=== PATIENT | male | born 1950 ===

== ENCOUNTER 2022-08-27 02:39 | Inpatient (IN) ==
[2022-08-27] MEDS ORDERED: 0.9 % SODIUM CHLORIDE 1,000 ML IV ONE (02:56)
[2022-08-27] MEDS ORDERED: ACETAMINOPHEN 325 MG TABLET PO ONE (02:56)
--- NOTE | 2022-08-27 02:57 | Emergency Department Note ---
Fever HPI General Chief Complaint: Fever Stated Complaint: fever, weakness Time Seen by Provider: 08/27/22 02:56 Source: patient, family (Daughter primarily and .) and EMS Mode of arrival: EMS Limitations: no limitations History of Present Illness HPI Narrative: Narrative: 71-year-old male presents emerged department brought in by ambulance because of fever and generalized body ache. Daughter reports that on Saturday he had muscle pains in his arms shoulders and chest. She thought it was due to him using the weed Dwayne so much. Saturday morning he did not feel well and actually felt worse. He sat in the chair all day and had no appetite which was very much unlike him. His mouth seemed droopy his eyes seemed droopy and his speech seems slurred. He lost bladder control. He was unable to sit up on his own. He shuffles when he walks. He has lost about 25 pounds recently on a weight loss diet. His present weight is 285 pounds. His left lower extremity has been secreting fluids. It is quite red and has been that way for some time. He recently had multiple biopsies performed by his systems security analyst. There was concern about the biopsy site on his back and question whether it could be infected. He was started on antibiotic for 1 week which she finished 3 days ago. Medications: His medicine list includes the blood thinner Pradaxa, amantadine, metformin 500 mg twice daily, bumetanide, atorvastatin, tamsulosin, hydrocodone, potassium chloride, other. Past medical history includes morbid obesity, a TIA 5 years ago, surgery to close a hole in his heart in 2009. Social history: , systems architecture analyst. Related Data Home Medications Medication Instructions Recorded Confirmed amantadine HCl 100 mg tablet 100 mg PO BID 08/27/22 08/27/22 atorvastatin 10 mg tablet 10 mg PO QDAY 08/27/22 08/27/22 bumetanide 1 mg tablet 1 mg PO BID 08/27/22 08/27/22 dabigatran etexilate 150 mg capsule 150 mg PO QDAY 08/27/22 08/27/22 hydrocodone 10 mg-acetaminophen 1 tab PO Q6H PRN Pain 08/27/22 08/27/22 325 mg tablet metformin 500 mg tablet,extended 500 mg PO BID 08/27/22 08/27/22 release 24 hr potassium chloride 10 mEq 10 meq PO QDAY 08/27/22 08/27/22 capsule,extended release tamsulosin 0.4 mg capsule 0.4 mg PO QDAY 08/27/22 08/27/22 Allergies Allergy/AdvReac Type Severity Reaction Status Date / Time No Known Drug Allergies Allergy Unverified 08/27/22 02:48 Review of Systems ROS ROS Narrative: Narrative: Constitutional: Reports fever and weakness Eyes: Denies eye discharge ENT ED: Denies ear pain or congestion Cardiovascular: Denies chest pain Respiratory: Reports shortness of breath; Denies cough Gastrointestinal: Denies abdominal pain, nausea, vomiting or diarrhea Genitourinary: Denies dysuria Musculoskeletal: Denies back pain Neurological: Denies headache PFSH Narrative Patient History Narrative: Narrative: Medical/Surgical/Family History All Active Problems (Updated 08/27/22 @ 07:56 by Gurinder Randhawa MD) Sepsis (Acute) Cellulitis of left lower extremity without foot (Acute) Social History Smoking Status: Never smoker Exam Narrative Narrative: Narrative: Morbidly obese elderly male lying in bed with a bright red left leg. Patient cannot answer questions when asked directly. Left lower extremity with significant edema from the ankle to 2 below the knee. Then there is spreading erythema that goes on the medial aspect of the thigh towards his groin. Extremity is edematous. There is also weeping from it. General Limitations: no limitations General appearance: Present alert, in distress and obese Head Head: Present atraumatic Eye Eye: Present PERRL and EOMI; Absent scleral icterus ENT ENT: Present normal exam, normal oropharynx, mucous membranes moist, mucous membranes dry, TM's normal bilaterally and normal external ear exam Neck Neck: Present normal inspection; Absent tenderness or meningismus Chest Chest: Present normal inspection Respiratory Respiratory: Present normal lung sounds bilaterally; Absent wheezes Cardiovascular Cardiovascular: Present normal rhythm and tachycardia Adbominal Abdominal: Present soft; Absent tenderness or guarding Extremities Extremities: Present other (Left lower extremity edematous and erythematous with with redness spreading from the ankle circumferentially to below the knee and then medially up the thigh to the level of the groin.) Back Back: Present other (Small healing wound central back from his biopsy. 2 mm rim of erythema around it but it does not look cellulitic.); Absent tenderness Neurological Neurological: Present alert and oriented X3 Psychiatric Psychiatric: Present normal affect and normal mood Skin Skin: Present warm (WNL) and dry Course Vital Signs Vital signs: Vital Signs Temperature 99.4 F H 08/27/22 02:40 Pulse Rate 130 H 08/27/22 02:40 Respiratory Rate 26 H 08/27/22 02:40 Blood Pressure 152/82 08/27/22 02:40 Pulse Oximetry (%) 93 08/27/22 02:40 Oxygen Delivery Method Room Air 08/27/22 02:40 Temperature 98.8 F 08/27/22 06:05 Pulse Rate 102 H 08/27/22 07:35 Respiratory Rate 26 H 08/27/22 07:40 Blood Pressure 110/71 08/27/22 07:40 Pulse Oximetry (%) 96 08/27/22 07:40 Oxygen Delivery Method Room Air 08/27/22 07:35 MDM MDM Narrative Medical decision making narrative: Narrative: Elderly male with fever and rapid heart rate along with an infected left leg. Differential diagnosis includes sepsis, atrial fibrillation, dehydration, infected left leg, other. Emergency room course. Patient was started on IV fluids and bolused 1 L of normal saline. He was not hypotensive and his lactic acid was normal so he did not require 30 mL/kg. Patient was given 975 mg of acetaminophen to bring down his fever. Patient was started on antibiotics for sepsis. 0320: Patient meets sepsis criteria with his leg is infection source and SIRS criteria of heart rate at 130 and respiratory rate of 36. Blood culture has been obtained and IV antibiotics (Zosyn and Vanco) have been ordered. Lactic acid level is normal at 1.6. Patient does not meet criteria of severe sepsis at this time. Hematocrit is 53. Electrolytes are normal. Sodium is 134. Potassium is 4.1. Chloride is 97. Bicarb is 29. BUN is normal at 13 with a normal creatinine of 0.8. Glucose is elevated at 179 and this type II diabetic. Lactic acid level is normal at 1.6. Troponin was negative at 0.02. Dip urine showed no nitrites no leukocytes trace blood. 0405: Patient has a temperature of 102.1. This is a third SIRS criteria. 0600 temperature has come down after the 975 mg of acetaminophen. Heart rate has come down as the temperature has come down. Patient has no localizing findings on physical exam. Scripts are equal upper and lower and there was no facial asymmetry. Nevertheless he does have a delay when speaking. He also struggled with the date and needed the presence first name before he gets to the presence last name. I have gone ahead and obtained a CT scan of the head because of this and because his NIH stroke scale was 5 although this seem to be related to general muscle weakness. Examination of his neck revealed that he could flex his neck putting his chin on his chest as well as put his head back making me less suspicious of meningitis. CT scan of the head was unremarkable. At 0700 the patient was able to sit up on his own without assistance. He spoke clearly without any difficulties. He was able to identify the date and location and was oriented. acknowledged that this was an improvement from earlier. Patient stated that he himself felt like he was feeling better and commented that he was unable to sit up on his own before and he felt like he had a bit more strength back. Patient requires hospitalization for his sepsis secondary to his left lower extremity. Case was discussed with our hospitalist Dr. Carrasco. Patient will be admitted for IV therapy. I will order a Doppler ultrasound left lower extremity to evaluate for possible DVT. Sepsis Sepsis Identified: Yes Time Zero: 0320: SIRS= tachy at 130, Tachypnic at 36, Left leg = source of infect Lab Data 08/27/22 03:28 Labs: Lab Results 08/27/22 08/27/22 08/27/22 Range/Units 02:57 02:58 02:59 WBC (4.5-11.0) K/mcL RBC (4.63-6.08) M/mcL Hgb (13.7-17.5) g/dL Hct (40.1-51.0) % POC Hct 53.0 (41-55) MCV (80.0-100.0) fL MCH (26.0-34.0) pg MCHC (31.0-36.0) g/dL RDW (11.5-14.5) % Plt Count (140-440) K/mcL MPV (8.8-12.5) fL Immature Gran % (Auto) (0.0-0.5) % Neut % (Auto) (38.0-78.0) % Lymph % (Auto) (15.5-49.0) % [place] % (Auto) (1.0-12.0) % Eos % (Auto) (0.0-7.0) % Baso % (Auto) (0.0-2.0) % Lymph # (Auto) (1.50-4.80) K/mcL [place] # (Auto) (0.10-0.90) K/mcL Eos # (Auto) (0.00-0.70) K/mcL Baso # (Auto) (0.00-0.30) K/mcL Immature Gran # (0.00-0.05) K/mcl Absolute Neutrophils (1.80-8.00) K/mcL POC VBG pH 7.50 H (7.32-7.42) POC VBG pCO2 at Temp 37.7 L (41-51) POC VBG pO2 43 H (25-40) POC VBG HCO3 29.2 H (24-28) POC VBG Total CO2 30.0 H (25-29) POC Venous O2 Sat 83.0 H (40-70) POC VBG Base Excess 6.0 H* (-2-2) VBG Lactic Acid 1.6 (0.5-2) POC Sodium 134 (133-145) POC Potassium 4.1 (3.3-5.1) POC Chloride 97 (96-108) POC Total CO2 29.0 (22-30) POC BUN 13 (6-20) POC Creatinine 0.8 (0.6-1.2) POC Glucose 179 H (70-105) POC WB Ioniz Calcium 1.05 L (1.16-1.32) Total Bilirubin (0.1-1.0) mg/dL Direct Bilirubin (0-0.3) mg/dL AST (<40) U/L ALT (<40) U/L Alkaline Phosphatase (39-117) U/L Total Protein (5.9-8.4) gm/dL Albumin (3.2-5.2) gm/dL Globulin (2.2-3.7) gm/dL POC Troponin I 0.02 (0.00-0.08) 08/27/22 08/27/22 08/27/22 Range/Units 03:28 03:28 03:32 WBC 17.8 H (4.5-11.0) K/mcL RBC 4.86 (4.63-6.08) M/mcL Hgb 14.9 (13.7-17.5) g/dL Hct 46.4 (40.1-51.0) % POC Hct (41-55) MCV 95.5 (80.0-100.0) fL MCH 30.7 (26.0-34.0) pg MCHC 32.1 (31.0-36.0) g/dL RDW 12.7 (11.5-14.5) % Plt Count 187 (140-440) K/mcL MPV 10.3 (8.8-12.5) fL Immature Gran % (Auto) 1.0 H (0.0-0.5) % Neut % (Auto) 91.8 H (38.0-78.0) % Lymph % (Auto) 2.4 L (15.5-49.0) % [place] % (Auto) 4.5 (1.0-12.0) % Eos % (Auto) 0.1 (0.0-7.0) % Baso % (Auto) 0.2 (0.0-2.0) % Lymph # (Auto) 0.43 L (1.50-4.80) K/mcL [place] # (Auto) 0.81 (0.10-0.90) K/mcL Eos # (Auto) 0.01 (0.00-0.70) K/mcL Baso # (Auto) 0.03 (0.00-0.30) K/mcL Immature Gran # 0.17 H (0.00-0.05) K/mcl Absolute Neutrophils 16.37 H (1.80-8.00) K/mcL POC VBG pH 7.43 H (7.32-7.42) POC VBG pCO2 at Temp 39.8 L (41-51) POC VBG pO2 28 (25-40) POC VBG HCO3 26.6 (24-28) POC VBG Total CO2 28.0 (25-29) POC Venous O2 Sat 55.0 (40-70) POC VBG Base Excess 2.0 (-2-2) VBG Lactic Acid 1.7 (0.5-2) POC Sodium (133-145) POC Potassium (3.3-5.1) POC Chloride (96-108) POC Total CO2 (22-30) POC BUN (6-20) POC Creatinine (0.6-1.2) POC Glucose (70-105) POC WB Ioniz Calcium (1.16-1.32) Total Bilirubin 0.4 (0.1-1.0) mg/dL Direct Bilirubin < 0.2 (0-0.3) mg/dL AST 21 (<40) U/L ALT 15 (<40) U/L Alkaline Phosphatase 68 (39-117) U/L Total Protein 6.6 (5.9-8.4) gm/dL Albumin 3.6 (3.2-5.2) gm/dL Globulin 3.0 (2.2-3.7) gm/dL POC Troponin I (0.00-0.08) EKG Data EKG #1: EKG attestation: Yes I reviewed and interpreted this EKG. Rate: tachycardia Rhythm: NSR [place]/QRS: left axis deviation and RBBB Interpretation: other (Abnormal EKG. Sinus tachycardia with right bundle branch block.) Discharge Plan Patient/Caregiver Discharge Instructions Pt seen by RESIDENT CARE PROVIDER/PA only: No Clinical Impression: Cellulitis of left lower extremity without foot Sepsis Qualifiers: Sepsis type: sepsis due to unspecified organism Sepsis acute organ dysfunction status: without acute organ dysfunction Qualified Code(s): A41.9 - Sepsis, unspecified organism Patient Disposition: Xfer As Inpt ([facility]) Condition: Serious Follow up with: Layla Fierro MD [Primary Care Provider] - Prescriptions: No Action amantadine HCl 100 mg Tablet 100 mg PO BID tamsulosin 0.4 mg capsule 0.4 mg PO QDAY bumetanide 1 mg Tablet 1 mg PO BID dabigatran etexilate 150 mg Capsule 150 mg PO QDAY potassium chloride 10 mEq capsule, extended release 10 meq PO QDAY atorvastatin 10 mg tablet 10 mg PO QDAY hydrocodone-acetaminophen 10-325 mg Tablet 1 tab PO Q6H PRN (Reason: Pain) metformin 500 mg tablet extended release 24 hr 500 mg PO BID
[2022-08-27 03:12] LABS: POC Calcium, Ionized 1.05 (1.16-1.32); POC Creatinine 0.8 (0.6-1.2); POC Potassium 4.1 (3.3-5.1)
[2022-08-27] MEDS ORDERED: PIPERACILLIN SODIUM/TAZOBACTAM 3.375 GM in DEXTROSE 5% IN WATER 50 ML IV ONE (03:21)
[2022-08-27] MEDS ORDERED: 0.9 % SODIUM CHLORIDE 500 ML ONE (03:27)
[2022-08-27] MEDS ORDERED: VANCOMYCIN 1,000 MG in 0.9 % SODIUM CHLORIDE 250 ML IV SCH (03:30)
[2022-08-27 04:12] LABS: Basophils # (Auto) 0.03 K/mcL (0.00-0.30); Basophils % (Auto) 0.2 % (0.0-2.0); Eosinophils # (Auto) 0.01 K/mcL (0.00-0.70); Eosinophils % (Auto) 0.1 % (0.0-7.0); Hematocrit 46.4 % (40.1-51.0); Hemoglobin 14.9 g/dL (13.7-17.5); Lymphocytes # (Auto) 0.43 K/mcL (1.50-4.80); Lymphocytes % (Auto) 2.4 % (15.5-49.0); Mean Cell Volume 95.5 fL (80.0-100.0); Mean Corpuscular HGB Conc 32.1 g/dL (31.0-36.0); Mean Platelet Volume 10.3 fL (8.8-12.5); Monocytes # (Auto) 0.81 K/mcL (0.10-0.90); Monocytes % (Auto) 4.5 % (1.0-12.0); Neutrophils % (Auto) 91.8 % (38.0-78.0); Platelet Count 187 K/mcL (140-440); RBC 4.86 M/mcL (4.63-6.08); Red Cell Distribution Width 12.7 % (11.5-14.5); WBC 17.8 K/mcL (4.5-11.0)
[2022-08-27 04:21] LABS: ALT/SGPT 15 U/L (<40); AST/SGOT 21 U/L (<40); Albumin 3.6 gm/dL (3.2-5.2); Alkaline Phosphatase 68 U/L (39-117); Bilirubin,Direct < 0.2 mg/dL (0-0.3); Bilirubin,Total 0.4 mg/dL (0.1-1.0)
--- NOTE | 2022-08-27 07:14 | EKG ---
[facility] Test Date: 2022-08-27 Pat Name: Foreign Matthew Department: ED Room: Gender: Male Gold Buyer: CW : 1950 Requested By: Gurinder Randhawa Order Number: [id number] Reading MD: Stan Hogan Measurements Intervals [place] Rate: 129 P: 55 MS: 134 QRS: -82 QRSD: 142 T: 1 QT: 312 QTc: 456 Interpretive Statements Sinus tachycardia Right bundle branch block Electronically Signed On 08-27-2022 7:14:29 PDT by Stan Hogan /store/[email or web address]/[id number]
--- NOTE | 2022-08-27 08:53 | XRay Report ---
CLINICAL INFORMATION: Fever COMPARISON: 10/13/2021 TECHNIQUE: Portable FINDINGS: The heart size, mediastinum and pulmonary vessels are unremarkable. Mild bibasilar airspace disease likely represents atelectasis. There are no effusions. The bones and soft tissues are within normal limits. IMPRESSION: Minor bibasilar airspace disease-likely atelectasis. Interpreted and Authenticated by: Mihai Aguilera 08/27/22
--- NOTE | 2022-08-27 08:56 | Ultrasound Report ---
CLINICAL INFORMATION: Left lower extremity pain COMPARISON: None. FINDINGS: The entire deep venous system including the common femoral, superficial femoral, popliteal and paired trifurcation calf veins are easily compressible and show normal venous blood flow on color and spectral Doppler. No evidence of thrombus IMPRESSION: Negative exam - no evidence of deep vein thrombosis. Interpreted and Authenticated by: Mihai Aguilera 08/27/22
--- NOTE | 2022-08-27 09:00 | Cat Scan Report ---
CLINICAL INFORMATION: Dysarthria. Fever and weakness COMPARISON: None. TECHNIQUE: 2.5 mm helical slices were obtained in the skull base to vertex. Following reconstruction, axial reformatted images were reviewed at bone and parenchymal windows. The exam was performed using radiation dose optimization techniques including, but not limited to, automated exposure control, adjustment of the mA and/or kV according to patient size and use of iterative reconstruction technique. FINDINGS: The ventricles, sulci, fissures, and cisterns are symmetrically enlarged compatible with mild age-related atrophy. No extra-axial fluid collections are identified. Mild patchy chronic ischemic changes, in the deep cerebral white matter, are expected for age. A 16 mm remote lacunar infarct in the left cerebellar hemisphere appreciated. Few tiny remote lacunar infarcts present in the basal ganglia with a 6 mm remote lacunar infarct right insular cortex and external capsule. There is no hemorrhage, mass effect, or edema. Bone windows show no osseous abnormality. IMPRESSION: Mild atrophy and chronic ischemic changes in the deep cerebral white matter-expected for age. Remote lacunar infarcts as described. No acute findings Interpreted and Authenticated by: Mihai Aguilera 08/27/22
--- NOTE | 2022-08-27 10:43 | Internal Med History&Physical ---
HPI History of Present Illness Patient information: Note initiated : 08/27/22 at 10:41 am Service Date, if different from initiated Date: [] Patient: Foreign Matthew a 71 y/o M admitted on for fever, weakness. Chief Complaint: [] History of present illness: Mr. Matthew is a 71 year old M Presents to the ED after family called EMS because patient was severely weak confused. Saturday patient spent quite a bit of time doing yard work and that night was little bit sore but otherwise felt well they went to dinner. He went to bed normal no complaints. Saturday morning his daughter found him to be weak and drowsy. Further measure the day just stayed in his chair and seem to get worse becoming more weak and unable to stand. He he was confused per family did not make any sense. He was sitting in his chair with his mouth open. He felt quite chilled and found members that he soaked through his pajamas. He has had a small punctate wound lateral left lower leg for some time which drains and soaks his socks. In the ED is found to have red swollen and tender left lower extremity. He was tachycardic at 110 and tachypneic. He had a leukocytosis of 18,000. Lactate was okay. Patient diagnosed with left lower extremity cellulitis and sepsis and started on IV antibiotics and IV fluids. Review of Systems: Pertinent positives above. Denies headache/fever/nausea/vomiting/chest or abdominal pain/cough/dyspnea/diarrhea. Remaining 10 point review of system reviewed negative PHYSICAL EXAM General: Alert, Awake, No acute Distress, obese Eyes/N/T: EOMI, no scleral icterus, PERRL, dry MM Head/Neck: neck supple, full ROM, normocephalic atraumatic CV: RRR, No murmurs, normal s1/s2 Pulm: Clear b/l, no wheezing/rhonchi/rales, no respiratory distress Abd: soft, nontender, +BS x4 Ext: no clubbing/cyanosis. b/l LE 2+ edema, LLE erythema/edema/tenderness above ankle and below knee circumferential Neuro: Alert, no focal deficits, moves all extremities, CN 2-12 grossly intact, sensations intact b/l upper/lower Psychiatric: Skin: warm/dry, normal color PFSH PFSH All Active Problems (Updated 08/27/22 @ 07:56 by Gurinder Randhawa MD) Sepsis (Acute) Cellulitis of left lower extremity without foot (Acute) Social History smoking status: Never smoker MEDS/ALLERGIES Home Medications and Allergies Home Medications Medication Instructions Recorded Confirmed Type amantadine HCl 100 mg tablet 100 mg PO BID 08/27/22 08/27/22 History atorvastatin 10 mg tablet 10 mg PO QDAY 08/27/22 08/27/22 History bumetanide 1 mg tablet 1 mg PO BID 08/27/22 08/27/22 History dabigatran etexilate 150 mg capsule 150 mg PO QDAY 08/27/22 08/27/22 History hydrocodone 10 mg-acetaminophen 1 tab PO Q6H PRN Pain 08/27/22 08/27/22 History 325 mg tablet metformin 500 mg tablet,extended 500 mg PO BID 08/27/22 08/27/22 History release 24 hr potassium chloride 10 mEq 10 meq PO QDAY 08/27/22 08/27/22 History capsule,extended release tamsulosin 0.4 mg capsule 0.4 mg PO QDAY 08/27/22 08/27/22 History Allergies Allergy/AdvReac Type Severity Reaction Status Date / Time No Known Drug Allergies Allergy Unverified 08/27/22 02:48 EXAM Constitutional Vitals: Temp Pulse Resp BP Pulse Ox O2 Del Method 98.8 F 106 H 17 124/71 96 Room Air 08/27/22 06:05 08/27/22 10:27 08/27/22 09:01 08/27/22 10:01 08/27/22 10:27 08/27/22 07:35 DATA Data Completed and Pending Labs: Labs from last 24 hours 08/27/22 08/27/22 08/27/22 03:32 03:28 03:28 WBC 17.8 H RBC 4.86 Hgb 14.9 Hct 46.4 POC Hct MCV 95.5 MCH 30.7 MCHC 32.1 RDW 12.7 Plt Count 187 MPV 10.3 Immature Gran % (Auto) 1.0 H Neut % (Auto) 91.8 H Lymph % (Auto) 2.4 L [place] % (Auto) 4.5 Eos % (Auto) 0.1 Baso % (Auto) 0.2 Lymph # (Auto) 0.43 L [place] # (Auto) 0.81 Eos # (Auto) 0.01 Baso # (Auto) 0.03 Immature Gran # 0.17 H Absolute Neutrophils 16.37 H POC VBG pH 7.43 H POC VBG pCO2 at Temp 39.8 L POC VBG pO2 28 POC VBG HCO3 26.6 POC VBG Total CO2 28.0 POC Venous O2 Sat 55.0 POC VBG Base Excess 2.0 VBG Lactic Acid 1.7 POC Sodium POC Potassium POC Chloride POC Total CO2 POC BUN POC Creatinine POC Glucose POC WB Ioniz Calcium Total Bilirubin 0.4 Direct Bilirubin < 0.2 AST 21 ALT 15 Alkaline Phosphatase 68 Total Protein 6.6 Albumin 3.6 Globulin 3.0 POC Troponin I 08/27/22 08/27/22 08/27/22 02:59 02:58 02:57 WBC RBC Hgb Hct POC Hct 53.0 MCV MCH MCHC RDW Plt Count MPV Immature Gran % (Auto) Neut % (Auto) Lymph % (Auto) [place] % (Auto) Eos % (Auto) Baso % (Auto) Lymph # (Auto) [place] # (Auto) Eos # (Auto) Baso # (Auto) Immature Gran # Absolute Neutrophils POC VBG pH 7.50 H POC VBG pCO2 at Temp 37.7 L POC VBG pO2 43 H POC VBG HCO3 29.2 H POC VBG Total CO2 30.0 H POC Venous O2 Sat 83.0 H POC VBG Base Excess 6.0 H* VBG Lactic Acid 1.6 POC Sodium 134 POC Potassium 4.1 POC Chloride 97 POC Total CO2 29.0 POC BUN 13 POC Creatinine 0.8 POC Glucose 179 H POC WB Ioniz Calcium 1.05 L Total Bilirubin Direct Bilirubin AST ALT Alkaline Phosphatase Total Protein Albumin Globulin POC Troponin I 0.02 A/P Narrative A/P Narrative: A: *LLE cellulitis: *Sepsis: 2/2 above *Bacteremia (GPC in chains): *Encephalopathy: 2/2 above *DM 2: *h/o TIA: on pradaxa, no history of PE/DVT/Arrhythmia *Obesity: BMI 40, lifestyle modification *BPH: *Peripheral edema: On Bumex *HLD: On statin * P: -Rocephin, clinda x24-48, pending BC, mrsa screen neg -serial BC's -IVF -monitor renal fxn, uop, i/o -outline cellulitis, Elevate - -Continue statin -SSI -PT/OT -ppx: home pradaxa/katarzyna Time Spent With Patient Time: Total time spent is greater than 50% in coordination of care (as documented) at patient's floor/unit and/or counseling patient:
[2022-08-27] MEDS ORDERED: IPRATROPIUM/ALBUTEROL 3 ML AMPUL.NEB NEB PRN (12:10)
[2022-08-27] MEDS ORDERED: POLYETHYLENE GLYCOL 3350 17 GM PACKET PO PRN (12:10)
[2022-08-27] MEDS ORDERED: SENNOSIDES 1 TABLET PO PRN (12:10)
[2022-08-27] MEDS ORDERED: ONDANSETRON 4 MG/2 ML VIAL IV PRN (12:10)
[2022-08-27] MEDS ORDERED: POTASSIUM CHLORIDE 20 MEQ TABLET PO PRN ×2 (12:10)
[2022-08-27] MEDS ORDERED: 0.9 % SODIUM CHLORIDE 1,000 ML IV SCH (12:10)
[2022-08-27] MEDS ORDERED: DEXTROSE 31 GM ORAL.SUSP PO PRN (12:10)
[2022-08-27] MEDS ORDERED: HYDROcodone/APAP 10/325MG TABLET PO PRN (12:10)
[2022-08-27] MEDS ORDERED: DEXTROSE 50% 50 ML VIAL IV PRN (12:10)
[2022-08-27] MEDS ORDERED: POTASSIUM CHLORIDE 40 MEQ in DEXTROSE 5% IN WATER 500 ML IV PRN (12:10)
[2022-08-27] MEDS ORDERED: MAGNESIUM SULFATE 2 GM/50 ML BAG IV PRN (12:10)
[2022-08-27] MEDS: INSULIN LISPRO 1 UNIT/0.01 ML UNIT SQ SCH ×3 (13:17→21:00)
[2022-08-27] MEDS: cefTRIAXone 2 GM in DEXTROSE 5% IN WATER 50 ML IV SCH (13:30)
[2022-08-27] MEDS: CLINDAMYCIN IN 0.9 % SOD CHLOR 600 MG/50 ML BAG IV SCH ×2 (14:15→21:01)
[2022-08-27] MEDS: 0.9 % SODIUM CHLORIDE 10 ML SYRINGE IV SCH ×2 (14:16→21:01)
[2022-08-27] MEDS: ACETAMINOPHEN 325 MG TABLET PO PRN (18:57)
[2022-08-27] MEDS: BUMETANIDE 1 MG TABLET PO SCH (20:56)
[2022-08-27] MEDS: DOCUSATE SODIUM 100 MG CAPSULE PO SCH (20:57)
[2022-08-27] MEDS: AMANTADINE HCL 100 MG CAPSULE PO SCH (20:57)
[2022-08-28] MEDS: ACETAMINOPHEN 325 MG TABLET PO PRN (03:29)
[2022-08-28] MEDS: CLINDAMYCIN IN 0.9 % SOD CHLOR 600 MG/50 ML BAG IV SCH ×3 (05:07→21:32)
[2022-08-28] MEDS: 0.9 % SODIUM CHLORIDE 10 ML SYRINGE IV SCH ×3 (05:08→21:32)
[2022-08-28] MEDS: INSULIN LISPRO 1 UNIT/0.01 ML UNIT SQ SCH ×4 (06:35→20:26)
[2022-08-28 07:15] LABS: Basophils # (Auto) 0.03 K/mcL (0.00-0.30); Basophils % (Auto) 0.3 % (0.0-2.0); Eosinophils # (Auto) 0.08 K/mcL (0.00-0.70); Eosinophils % (Auto) 0.7 % (0.0-7.0); Hematocrit 44.3 % (40.1-51.0); Hemoglobin 14.3 g/dL (13.7-17.5); Lymphocytes % (Auto) 10.1 % (15.5-49.0); Mean Cell Volume 95.1 fL (80.0-100.0); Mean Corpuscular HGB Conc 32.3 g/dL (31.0-36.0); Mean Platelet Volume 10.5 fL (8.8-12.5); Monocytes # (Auto) 1.26 K/mcL (0.10-0.90); Monocytes % (Auto) 10.6 % (1.0-12.0); Neutrophils % (Auto) 77.8 % (38.0-78.0); Platelet Count 188 K/mcL (140-440); RBC 4.66 M/mcL (4.63-6.08); Red Cell Distribution Width 12.7 % (11.5-14.5); WBC 11.9 K/mcL (4.5-11.0)
--- NOTE | 2022-08-28 07:32 | Internal Med Progress Note ---
SUBJECTIVE Subjective Patient information: Note initiated : 08/28/22 at 7:27 am Service Date, if different from initiated Date: [] Patient: Foreign Matthew a 71 y/o M admitted on 08/27/22 for fever, weakness. Chief Complaint: [] Interval history: History of present illness: Mr. Matthew is a 71 year old M Presents to the ED after family called EMS because patient was severely weak confused. Saturday patient spent quite a bit of time doing yard work and that night was little bit sore but otherwise felt well they went to dinner. He went to bed no rmal no complaints. Saturday morning his daughter found him to be weak and drowsy. Further measure the day just stayed in his chair and seem to get worse becoming more weak and unable to stand. He he was confused per family did not make any sense. He was sitting in his chair with his mouth open. He felt quite chilled and found members that he soaked through his pajamas. He has had a small punctate wound lateral left lower leg for some time which drains and soaks his socks. In the ED is found to have red swollen and tender left lower extremity. He was tachycardic at 110 and tachypneic. He had a leukocytosis of 18,000. Lactate was okay. Patient diagnosed with left lower extremity cellulitis and sepsis and started on IV antibiotics and IV fluids. 08/28 Patient feeling much better today. Slept well. Blood cultures growing gram- positive cocci in chains likely strep. Repeat blood cultures pending. Continue antibiotics parental. Leukocytosis present but better. Review of Systems: Pertinent positives above. Denies headache/fever/nausea/vomiting/chest or abdominal pain/cough/dyspnea/diarrhea. PHYSICAL EXAM General: Alert, Awake, No acute Distress, obese Eyes/N/T: EOMI, no scleral icterus, Head/Neck: neck supple, full ROM, CV: RRR, No murmurs, Pulm: Clear b/l, no wheezing/rhonchi/rales, no respiratory distress Abd: soft, nontender, +BS x4 Ext: no clubbing/cyanosis. b/l LE 2+ edema, LLE erythema/edema/tenderness above ankle and below knee circumferential is improving Neuro: Alert, no focal deficits, moves all extremities, sensations intact b/l upper/lower Psychiatric: Skin: warm/dry, normal color Constitutional Vitals: Vital Signs Temp Pulse Resp BP Pulse Ox O2 Del Method 97.5 F 81 18 103/67 97 Room Air 08/28/22 03:55 08/28/22 03:55 08/28/22 03:55 08/28/22 03:55 08/28/22 03:55 08/28/22 06:53 Period Temp Pulse Resp BP Sys/[place] Pulse Ox O2 Del Method O2 Flow Rate Last 24 Hr 97.2 F-101 F 81-109 17- 103-140/67-88 91-99 Room Air-Room Air Intake and Output 08/27/22 08/28/22 08/28/22 19:59 03:59 11:59 Intake Total 580 1750 50 Output Total 300 Balance 280 1750 50 Weight 136.758 kg Intake & Output: Intake & Output 08/27/22 08/28/22 08/28/22 19:59 03:59 11:59 Intake Total 580 1750 50 Output Total 300 Balance 280 1750 50 Weight 136.758 kg Intake: IV 100 1050 50 Sodium Chloride 0.9% 1,000 ml @ 1000 100 mls/hr IV .Q10H [facility] Rx#: [id number] Rocephin 2 gm In Dextrose 5% in 50 Water 50 ml @ 100 mls/hr IV Q24H [facility] Rx#:[id number] Oral 480 700 Output: Void Amount 300 Other: Meal Lunch Percent of Meal Consumed 75% Urine Appearance Clear Urine Color Yellow # Voids 1 4 OBJ DATA Labs 08/28/22 05:54 08/28/22 05:54 Labs: Abnormal Lab Results 08/28/22 08/27/22 08/27/22 05:54 03:32 03:28 WBC 11.9 H 17.8 H Immature Gran % (Auto) 1.0 H Neut % (Auto) 91.8 H Lymph % (Auto) 10.1 L 2.4 L Lymph # (Auto) 1.20 L 0.43 L [place] # (Auto) 1.26 H Immature Gran # 0.06 H 0.17 H Absolute Neutrophils 9.22 H 16.37 H POC VBG pH 7.43 H POC VBG pCO2 at Temp 39.8 L POC VBG pO2 POC VBG HCO3 POC VBG Total CO2 POC Venous O2 Sat POC VBG Base Excess POC Glucose POC WB Ioniz Calcium 08/27/22 08/27/22 02:58 02:57 WBC Immature Gran % (Auto) Neut % (Auto) Lymph % (Auto) Lymph # (Auto) [place] # (Auto) Immature Gran # Absolute Neutrophils POC VBG pH 7.50 H POC VBG pCO2 at Temp 37.7 L POC VBG pO2 43 H POC VBG HCO3 29.2 H POC VBG Total CO2 30.0 H POC Venous O2 Sat 83.0 H POC VBG Base Excess 6.0 H* POC Glucose 179 H POC WB Ioniz Calcium 1.05 L Meds: Medications Acetaminophen (Acetaminophen 325 Mg Tablet) 650 mg PO Q6HP PRN; Protocol PRN Reason: Per Pain Protocol/Fever > 101 Last Admin: 08/28/22 03:29 Dose: 650 mg Hydrocodone Bitart/Acetaminophen (Hydrocodone/Apap 10/325mg Tablet) 1 tab PO Q6H PRN; Protocol PRN Reason: Pain Albuterol/Ipratropium (Ipratropium/Albuterol 3 Ml Ampul.Neb) 3 ml NEB Q4HP PRN PRN Reason: Shortness Of Breath Amantadine HCl (Amantadine Hcl 100 Mg Capsule) 100 mg PO BID [facility] Last Admin: 08/27/22 20:57 Dose: 100 mg Atorvastatin Calcium (Atorvastatin 10 Mg Tablet) 10 mg PO QDAY [facility] Bumetanide (Bumetanide 1 Mg Tablet) 1 mg PO BID [facility] Last Admin: 08/27/22 20:56 Dose: 1 mg Dextrose (Dextrose 50% 50 Ml Vial) 0 ml IV UD PRN PRN Reason: Per Sliding Scale Diagnostic Test (Pha) (Accu-Chek 1 Each Strip) 1 each FS ACHS [facility] Last Admin: 08/28/22 06:35 Dose: 1 each Docusate Sodium (Docusate Sodium 100 Mg Capsule) 100 mg PO BID [facility] Last Admin: 08/27/22 20:57 Dose: Not Given Glucose (Dextrose 31 Gm Oral.Susp) 15 gm PO PRN PRN PRN Reason: Hypoglycemia Potassium Chloride 40 meq/ (Dextrose) 520 mls @ 130 mls/hr IV UD PRN PRN Reason: Potassium < 3 Magnesium Sulfate (Magnesium Sulfate) 2 gm in 50 mls @ 50 mls/hr IV UD PRN PRN Reason: Magnesium </= 1.6 Ceftriaxone Sodium 2 gm/ (Dextrose) 50 mls @ 100 mls/hr IV Q24H [facility]; Protocol Last Infusion: 08/27/22 14:16 Dose: Infused CLINDAMYCIN IN 0.9 % SOD CHLOR (Clindamycin 600 Mg/50 Ml-Ns) 600 mg in 50 mls @ 100 mls/hr IV Q8H [facility] Stop: 08/28/22 14:29 Last Infusion: 08/28/22 05:37 Dose: Infused Insulin Human Lispro (Insulin Lispro 1 Unit/0.01 Ml Unit) 0 unit SQ ACHS [facility]; Protocol Last Admin: 08/28/22 06:35 Dose: Not Given Ondansetron HCl (Ondansetron 4 Mg/2 Ml Vial) 4 mg IV Q4HP PRN PRN Reason: Nausea And Vomiting Dabigatran Etexilate (150 Mg Capsule) 1 dose PO BID [facility] Polyethylene Glycol (Polyethylene Glycol 3350 17 Gm Packet) 17 gm PO DAILYP PRN PRN Reason: Constipation Potassium Chloride (Potassium Chloride 10 Meq Tablet) 10 meq PO QAMCC [facility] Potassium Chloride (Potassium Chloride 20 Meq Tablet) 40 meq PO UD PRN PRN Reason: Potssium is 3-3.5 Potassium Chloride (Potassium Chloride 20 Meq Tablet) 40 meq PO UD PRN PRN Reason: Potassium < 3 Senna (Sennosides 1 Tablet) 2 tab PO DAILYP PRN PRN Reason: Constipation Sodium Chloride (0.9 % Sodium Chloride 10 Ml Syringe) 10 ml IV Q8 [facility] Last Admin: 08/28/22 05:08 Dose: 10 ml Tamsulosin HCl (Tamsulosin 0.4 Mg Capsule) 0.4 mg PO QDAY [facility] A/P Narrative A/P Narrative: A: *LLE cellulitis: *Sepsis: 2/2 above -febrile last evening, leukocytosis improving *Bacteremia (Strep Agalact): *Encephalopathy: 2/2 above *DM 2: *h/o TIA: on pradaxa, no history of PE/DVT/Arrhythmia *Obesity: BMI 40, lifestyle modification *BPH: *Peripheral edema: On Bumex *HLD: On statin * P: -Rocephin, clinda x48hrs, pending BC, mrsa screen neg. 14-day IV abx course from neg date -serial BC's -IVF d/c -monitor renal fxn, uop, i/o -outline cellulitis, Elevate -Follow-up chemistry/ CBC -Continue statin -SSI -PT/OT -ppx: home pradaxa/katarzyna Time Spent With Patient Time: Total time spent is greater than 50% in coordination of care (as documented) at patient's floor/unit and/or counseling patient: Subsequent: Total time with patient: 50 - 65 Minutes QUALITY VTE Deep Vein Thrombosis/Pulmonary Embolism Present on Admission: No
[2022-08-28 08:07] LABS: ALT/SGPT 23 U/L (<40); AST/SGOT 72 U/L (<40); Albumin 3.1 gm/dL (3.2-5.2); Albumin/Globulin Ratio 1.1 (1.0-2.3); Alkaline Phosphatase 64 U/L (39-117); Bilirubin,Direct < 0.2 mg/dL (0-0.3); Bilirubin,Total 0.3 mg/dL (0.1-1.0); Blood Urea Nitrogen 10 mg/dL (8-23); Calcium 8.1 mg/dL (8.6-10.4); Carbon Dioxide 25 mmol/L (22-30); Chloride 99 mmol/L (96-108); Globulin 2.9 gm/dL (2.2-3.7); Glomerular Filtration Rate 93; Glucose 104 mg/dL (70-105); Lactate Dehydrogenase 165 U/L (135-225); Phosphorous 2.7 mg/dL (2.5-4.5); Triglycerides 58 mg/dL (<150); Uric Acid 4.6 mg/dL (2.5-8.0)
--- NOTE | 2022-08-28 11:21 | Discharge Summary ---
Discharge Provider Provider IMPORTANT FOLLOW-UP INFORMATION FOR PCP: Patient information: Note initiated : 08/28/22 at 11:19 am Service Date, if different from initiated Date: [] Patient: Foreign Matthew a 71 y/o M admitted on 08/27/22 for fever, weakness. Chief Complaint: [] Date of admission: 08/27/22 11:49 Discharge date: 08/30/22 Primary care physician: Layla Fierro Consults: 08/27/22 Consult to Physician [CONS] Stat Comment: Consulting Provider: Dennis Carrasco Reason For Exam: Physician to Consult COURSE Hospital Course Hospital course: History of present illness: Mr. Matthew is a 71 year old M Presents to the ED after family called EMS because patient was severely weak confused. Saturday patient spent quite a bit of time doing yard work and that night was little bit sore but otherwise felt well they went to dinner. He went to bed normal no complaints. Saturday morning his daughter found him to be weak and drowsy. Further measure the day just stayed in his chair and seem to get worse becoming more weak and unable to stand. He he was confused per family did not make any sense. He was sitting in his chair with his mouth open. He felt quite chilled and found members that he soaked through his pajamas. He has had a small punctate wound lateral left lower leg for some time which drains and soaks his socks. In the ED is found to have red swollen and tender left lower extremity. He was tachycardic at 110 and tachypneic. He had a leukocytosis of 18,000. Lactate was okay. Patient diagnosed with left lower extremity cellulitis and sepsis and started on IV antibiotics and IV fluids. 08/28 Patient feeling much better today. Slept well. Blood cultures growing gram- positive cocci in chains likely strep. Repeat blood cultures pending. Continue antibiotics parental. Leukocytosis present but better. 08/29 Patient sitting at bedside eating breakfast. Family at bedside. leg less red, pending f/u BC's. Patient will need IV antibiotics for strep bacteremia. 08/30 Patient doing well. Repeat blood cultures negative. Patient stable for discharge. A: *LLE cellulitis: *Sepsis: 2/2 above *Bacteremia (Strep Agalact): 2/2 above *Encephalopathy: 2/2 above *DM 2: *h/o TIA: on pradaxa, no history of PE/DVT/Arrhythmia *Obesity: BMI 40, lifestyle modification *BPH: *Peripheral edema: On Bumex *HLD: On statin * P: -IV Abx 14-day course from negative BC's Discharge diagnosis: Cellulitis sepsis bacteremia strep agalactiae Encephalopathy Secondary discharge diagnosis: Diabetes type 2 history of TIAs obesity BPH peripheral edema hyperlipidemia. Time Spent with Patient Time attestation: Total time spent providing and/or coordinating discharge services: Time spent: Greater than 30 minutes EXAM Constitutional Vitals: Temp Pulse Resp BP Pulse Ox O2 Del Method 97.9 F 80 18 114/78 96 Room Air 08/28/22 07:50 08/28/22 07:50 08/28/22 07:50 08/28/22 07:50 08/28/22 07:50 08/28/22 07:50 Discharge Data Data Completed and Pending Labs on day of discharge: Labs from last 24 hours 08/28/22 08/28/22 05:54 05:54 WBC 11.9 H RBC 4.66 Hgb 14.3 Hct 44.3 MCV 95.1 MCH 30.7 MCHC 32.3 RDW 12.7 Plt Count 188 MPV 10.5 Immature Gran % (Auto) 0.5 Neut % (Auto) 77.8 Lymph % (Auto) 10.1 L [place] % (Auto) 10.6 Eos % (Auto) 0.7 Baso % (Auto) 0.3 Lymph # (Auto) 1.20 L [place] # (Auto) 1.26 H Eos # (Auto) 0.08 Baso # (Auto) 0.03 Immature Gran # 0.06 H Absolute Neutrophils 9.22 H Sodium 134 Potassium 3.5 Chloride 99 Carbon Dioxide 25 Anion Gap 10.0 BUN 10 Creatinine 0.7 GFR Calculation 93 Glucose 104 Uric Acid 4.6 Calcium 8.1 L Phosphorus 2.7 Magnesium 1.8 Total Bilirubin 0.3 Direct Bilirubin < 0.2 GGT 30 AST 72 H ALT 23 Alkaline Phosphatase 64 Lactate Dehydrogenase 165 Total Protein 6.0 Albumin 3.1 L Globulin 2.9 Albumin/Globulin Ratio 1.1 Triglycerides 58 Preliminary micro results at discharge 08/27/22 03:19 Blood Culture - Preliminary Blood Strep agalactiae - (group b) 08/27/22 03:26 Blood Culture - Preliminary Blood Strep agalactiae - (group b) Discharge Plan Patient/Caregiver Discharge Instructions Activity: increase activity as tolerated Diet: Consistent Carbohydrate Prescriptions: New ceftriaxone 2 gram recon soln 2 g IV Q24H Qty: 10 0RF Rx Instructions: start on 08/31/2022 Continued amantadine HCl 100 mg Tablet 100 mg PO BID tamsulosin 0.4 mg capsule 0.4 mg PO QDAY bumetanide 1 mg Tablet 1 mg PO BID dabigatran etexilate 150 mg Capsule 150 mg PO QDAY potassium chloride 10 mEq capsule, extended release 10 meq PO QDAY atorvastatin 10 mg tablet 10 mg PO QDAY hydrocodone-acetaminophen 10-325 mg Tablet 1 tab PO Q6H PRN (Reason: Pain) metformin 500 mg tablet extended release 24 hr 500 mg PO BID guaifenesin [Mucinex] 600 mg Tablet Extended Release 12hr 600 mg PO BID Follow Up Plan Follow up with: Oh Sprague MD [Physician] - Layla Fierro MD [Primary Care Provider] - Patient Disposition: Home, Self-Care Plan of Treatment: Plan: Agree with IV antibiotics. Local skin and wound care. Medial management per Hospitalist. Will follow patient during hospitalization. Further recommendations as condition evolves. Prognosis: Fair Overall status at discharge: patient is progressing back to baseline Discharge Orders: Discharge Order (Routine); Ordered 08/30/22 Ordered By: Dennis Carrasco [facility] VTE Deep Vein Thrombosis/Pulmonary Embolism Present on Admission: No
[2022-08-28] MEDS: POTASSIUM CHLORIDE 10 MEQ TABLET PO SCH (11:34)
[2022-08-28] MEDS: DOCUSATE SODIUM 100 MG CAPSULE PO SCH ×2 (11:34→20:29)
[2022-08-28] MEDS: TAMSULOSIN 0.4 MG CAPSULE PO SCH (11:35)
[2022-08-28] MEDS: ATORVASTATIN 10 MG TABLET PO SCH (11:35)
[2022-08-28] MEDS: BUMETANIDE 1 MG TABLET PO SCH ×2 (11:36→20:27)
[2022-08-28] MEDS: cefTRIAXone 2 GM in DEXTROSE 5% IN WATER 50 ML IV SCH (11:44)
[2022-08-28] MEDS: AMANTADINE HCL 100 MG CAPSULE PO SCH ×2 (11:48→20:27)
[2022-08-29] MEDS: CLINDAMYCIN IN 0.9 % SOD CHLOR 600 MG/50 ML BAG IV SCH (05:17)
[2022-08-29] MEDS: 0.9 % SODIUM CHLORIDE 10 ML SYRINGE IV SCH ×4 (05:59→20:26)
--- NOTE | 2022-08-29 07:25 | Internal Med Progress Note ---
SUBJECTIVE Subjective Patient information: Note initiated : 08/29/22 at 7:24 am Service Date, if different from initiated Date: [] Patient: Foreign Matthew a 71 y/o M admitted on 08/27/22 for fever, weakness. Chief Complaint: [] Interval history: History of present illness: Mr. Matthew is a 71 year old M Presents to the ED after family called EMS because patient was severely weak confused. Saturday patient spent quite a bit of time doing yard work and that night was little bit sore but otherwise felt well they went to dinner. He went to bed no rmal no complaints. Saturday morning his daughter found him to be weak and drowsy. Further measure the day just stayed in his chair and seem to get worse becoming more weak and unable to stand. He he was confused per family did not make any sense. He was sitting in his chair with his mouth open. He felt quite chilled and found members that he soaked through his pajamas. He has had a small punctate wound lateral left lower leg for some time which drains and soaks his socks. In the ED is found to have red swollen and tender left lower extremity. He was tachycardic at 110 and tachypneic. He had a leukocytosis of 18,000. Lactate was okay. Patient diagnosed with left lower extremity cellulitis and sepsis and started on IV antibiotics and IV fluids. 08/28 Patient feeling much better today. Slept well. Blood cultures growing gram- positive cocci in chains likely strep. Repeat blood cultures pending. Continue antibiotics parental. Leukocytosis present but better. 08/29 Patient sitting at bedside eating breakfast. Family at bedside. leg less red, pending f/u BC's. Patient will need IV antibiotics for strep bacteremia. Review of Systems: Pertinent positives above. Denies headache/fever/nausea/vomiting/chest or abdominal pain/cough/dyspnea/diarrhea. PHYSICAL EXAM General: Alert, Awake, No acute Distress, obese Eyes/N/T: EOMI, no scleral icterus, Head/Neck: neck supple, full ROM, CV: RRR, No murmurs, Pulm: Clear b/l, no wheezing/rhonchi/rales, no respiratory distress Abd: soft, nontender, +BS x4 Ext: no clubbing/cyanosis. b/l LE 2+ edema, LLE erythema/edema/tenderness above ankle and below knee circumferential is improving Neuro: Alert, no focal deficits, moves all extremities, sensations intact b/l upper/lower Psychiatric: Skin: warm/dry, normal color Constitutional Vitals: Vital Signs Temp Pulse Resp BP Pulse Ox O2 Del Method 98.1 F 96 H 18 128/76 96 Room Air 08/29/22 03:10 08/29/22 03:10 08/29/22 03:10 08/29/22 03:10 08/29/22 03:10 08/29/22 03:10 Period Temp Pulse Resp BP Sys/[place] Pulse Ox O2 Del Method O2 Flow Rate Last 24 Hr 97.7 F-99.0 F 79-106 18-20 108-128/66-82 95-98 Room Air-Room Air Intake and Output 08/28/22 08/29/22 08/29/22 19:59 03:59 11:59 Intake Total 2260 250 50 Output Total 500 Balance 1760 250 50 Weight 136.35 kg Intake & Output: Intake & Output 08/28/22 08/29/22 08/29/22 19:59 03:59 11:59 Intake Total 2260 250 50 Output Total 500 Balance 1760 250 50 Weight 136.35 kg Intake: IV 100 50 50 Rocephin 2 gm In Dextrose 5% in 50 Water 50 ml @ 100 mls/hr IV Q24H [facility] Rx#:[id number] Oral 2160 200 Output: Void Amount 500 Other: Meal Dinner Percent of Meal Consumed 100% Feeding Ability Independent # Voids 1 1 OBJ DATA Labs 08/28/22 05:54 08/28/22 05:54 Labs: Abnormal Lab Results 08/28/22 08/28/22 08/27/22 05:54 05:54 03:32 WBC 11.9 H Immature Gran % (Auto) Neut % (Auto) Lymph % (Auto) 10.1 L Lymph # (Auto) 1.20 L [place] # (Auto) 1.26 H Immature Gran # 0.06 H Absolute Neutrophils 9.22 H POC VBG pH 7.43 H POC VBG pCO2 at Temp 39.8 L POC VBG pO2 POC VBG HCO3 POC VBG Total CO2 POC Venous O2 Sat POC VBG Base Excess POC Glucose Calcium 8.1 L POC WB Ioniz Calcium AST 72 H Albumin 3.1 L 08/27/22 08/27/22 08/27/22 03:28 02:58 02:57 WBC 17.8 H Immature Gran % (Auto) 1.0 H Neut % (Auto) 91.8 H Lymph % (Auto) 2.4 L Lymph # (Auto) 0.43 L [place] # (Auto) Immature Gran # 0.17 H Absolute Neutrophils 16.37 H POC VBG pH 7.50 H POC VBG pCO2 at Temp 37.7 L POC VBG pO2 43 H POC VBG HCO3 29.2 H POC VBG Total CO2 30.0 H POC Venous O2 Sat 83.0 H POC VBG Base Excess 6.0 H* POC Glucose 179 H Calcium POC WB Ioniz Calcium 1.05 L AST Albumin Meds: Medications Acetaminophen (Acetaminophen 325 Mg Tablet) 650 mg PO Q6HP PRN; Protocol PRN Reason: Per Pain Protocol/Fever > 101 Last Admin: 08/28/22 03:29 Dose: 650 mg Hydrocodone Bitart/Acetaminophen (Hydrocodone/Apap 10/325mg Tablet) 1 tab PO Q6H PRN; Protocol PRN Reason: Pain Albuterol/Ipratropium (Ipratropium/Albuterol 3 Ml Ampul.Neb) 3 ml NEB Q4HP PRN PRN Reason: Shortness Of Breath Amantadine HCl (Amantadine Hcl 100 Mg Capsule) 100 mg PO BID [facility] Last Admin: 08/28/22 20:27 Dose: 100 mg Atorvastatin Calcium (Atorvastatin 10 Mg Tablet) 10 mg PO QDAY [facility] Last Admin: 08/28/22 11:35 Dose: 10 mg Bumetanide (Bumetanide 1 Mg Tablet) 1 mg PO BIDD [facility] Dextrose (Dextrose 50% 50 Ml Vial) 0 ml IV UD PRN PRN Reason: Per Sliding Scale Diagnostic Test (Pha) (Accu-Chek 1 Each Strip) 1 each FS ACHS [facility] Last Admin: 08/28/22 20:26 Dose: 1 each Docusate Sodium (Docusate Sodium 100 Mg Capsule) 100 mg PO BID [facility] Last Admin: 08/28/22 20:29 Dose: Not Given Glucose (Dextrose 31 Gm Oral.Susp) 15 gm PO PRN PRN PRN Reason: Hypoglycemia Potassium Chloride 40 meq/ (Dextrose) 520 mls @ 130 mls/hr IV UD PRN PRN Reason: Potassium < 3 Magnesium Sulfate (Magnesium Sulfate) 2 gm in 50 mls @ 50 mls/hr IV UD PRN PRN Reason: Magnesium </= 1.6 Ceftriaxone Sodium 2 gm/ (Dextrose) 50 mls @ 100 mls/hr IV Q24H [facility]; Protocol Last Infusion: 08/28/22 12:20 Dose: Infused Insulin Human Lispro (Insulin Lispro 1 Unit/0.01 Ml Unit) 0 unit SQ ACHS [facility]; Protocol Last Admin: 08/28/22 20:26 Dose: Not Given Ondansetron HCl (Ondansetron 4 Mg/2 Ml Vial) 4 mg IV Q4HP PRN PRN Reason: Nausea And Vomiting Dabigatran Etexilate (150 Mg Capsule) 1 dose PO BID [facility] Last Admin: 08/28/22 20:27 Dose: 1 dose Polyethylene Glycol (Polyethylene Glycol 3350 17 Gm Packet) 17 gm PO DAILYP PRN PRN Reason: Constipation Potassium Chloride (Potassium Chloride 10 Meq Tablet) 10 meq PO QAMCC [facility] Last Admin: 08/28/22 11:34 Dose: 10 meq Potassium Chloride (Potassium Chloride 20 Meq Tablet) 40 meq PO UD PRN PRN Reason: Potssium is 3-3.5 Potassium Chloride (Potassium Chloride 20 Meq Tablet) 40 meq PO UD PRN PRN Reason: Potassium < 3 Senna (Sennosides 1 Tablet) 2 tab PO DAILYP PRN PRN Reason: Constipation Sodium Chloride (0.9 % Sodium Chloride 10 Ml Syringe) 10 ml IV Q8 [facility] Last Admin: 08/29/22 05:59 Dose: 10 ml Tamsulosin HCl (Tamsulosin 0.4 Mg Capsule) 0.4 mg PO QDAY [facility] Last Admin: 08/28/22 11:35 Dose: 0.4 mg A/P Narrative A/P Narrative: A: *LLE cellulitis: *Sepsis: 2/2 above -afebrile o/n, leukocytosis improving *Bacteremia (Strep Agalact): *Encephalopathy: 2/2 above *Hyponatremia: *DM 2: *h/o TIA: on pradaxa, no history of PE/DVT/Arrhythmia *Obesity: BMI 40, lifestyle modification *BPH: *Peripheral edema: On Bumex *HLD: On statin * P: -Rocephin, clinda d/c, pending BC, mrsa screen neg. IV Abx 14-day course from negative BC's -serial BC's -IVF d/c -monitor renal fxn, uop, i/o -outline cellulitis, Elevate -Follow-up chemistry/ CBC -Continue statin -SSI -PT/OT -ppx: home pradaxa/katarzyna Plan of Treatment: Plan: Agree with IV antibiotics. Local skin and wound care. Medial management per Hospitalist. Will follow patient during hospitalization. Further recommendations as condition evolves. Time Spent With Patient Time: Total time spent is greater than 50% in coordination of care (as documented) at patient's floor/unit and/or counseling patient: Subsequent: Total time with patient: 35 - 49 minutes QUALITY VTE Deep Vein Thrombosis/Pulmonary Embolism Present on Admission: No
[2022-08-29] MEDS: INSULIN LISPRO 1 UNIT/0.01 ML UNIT SQ SCH ×4 (07:28→20:23)
[2022-08-29 08:12] LABS: Blood Urea Nitrogen 11 mg/dL (8-23); Carbon Dioxide 25 mmol/L (22-30); Chloride 95 mmol/L (96-108); Glomerular Filtration Rate 93; Glucose 161 mg/dL (70-105)
[2022-08-29] MEDS: ATORVASTATIN 10 MG TABLET PO SCH (08:12)
[2022-08-29] MEDS: POTASSIUM CHLORIDE 10 MEQ TABLET PO SCH (08:12)
[2022-08-29] MEDS: TAMSULOSIN 0.4 MG CAPSULE PO SCH (08:12)
[2022-08-29] MEDS: BUMETANIDE 1 MG TABLET PO SCH ×2 (08:12→16:12)
[2022-08-29] MEDS: cefTRIAXone 2 GM in DEXTROSE 5% IN WATER 50 ML IV SCH (08:12)
[2022-08-29] MEDS: DOCUSATE SODIUM 100 MG CAPSULE PO SCH ×2 (08:13→20:26)
[2022-08-29] MEDS: AMANTADINE HCL 100 MG CAPSULE PO SCH ×2 (08:35→20:25)
[2022-08-29] MEDS: SODIUM CHLORIDE 1 GM TABLET PO SCH ×2 (08:40→20:26)
[2022-08-29] MEDS: guaiFENesin 600 MG TAB.SR.12H PO SCH ×2 (09:20→20:26)
--- NOTE | 2022-08-29 14:05 | General Surgery Consult Note ---
HPI Date of Consult Consult Date: 08/29/22 Requesting physician: Dennis Carrasco Primary Care Provider: Layla Fierro Consult Narrative Patient Information: Note initiated : 08/29/22 at 1:50 pm Service Date, if different from initiated Date: [] Patient: Foreign Matthew 71 y/o M admitted on 08/27/22 for fever, weakness. Chief Complaint: [] Chief complaint: Cellulitis LEFT leg. Reason for consult: Wound care. cc:: I saw this patient along with Ila Victoria in room 112. Reviewed H/P and progress notes since admission. CC: Dennis Carrasco Review of Systems All systems: reviewed and no additional remarkable complaints except as stated Review of systems: As stated in HPI of Hospitalist Note. H/O working out in yard 3 days ago. Developed chills, diaphoresis and confused. Noticed puncture wound LEFT lateral leg with clear drainage. Developed redness and rash which progressed up the leg . Seen in ER and admitted for SEPSIS due to CSSSI Constitutional Constitutional: Present as per HPI PFSH PFSH All Active Problems Sepsis (Acute) Cellulitis of left lower extremity without foot (Acute) Social History smoking status: Never smoker MEDS/ALLERGIES Home Medications and Allergies Home Medications Medication Instructions Recorded Confirmed Type amantadine HCl 100 mg tablet 100 mg PO BID 08/27/22 08/27/22 History atorvastatin 10 mg tablet 10 mg PO QDAY 08/27/22 08/27/22 History bumetanide 1 mg tablet 1 mg PO BID 08/27/22 08/27/22 History dabigatran etexilate 150 mg capsule 150 mg PO QDAY 08/27/22 08/27/22 History hydrocodone 10 mg-acetaminophen 1 tab PO Q6H PRN Pain 08/27/22 08/27/22 History 325 mg tablet metformin 500 mg tablet,extended 500 mg PO BID 08/27/22 08/27/22 History release 24 hr potassium chloride 10 mEq 10 meq PO QDAY 08/27/22 08/27/22 History capsule,extended release tamsulosin 0.4 mg capsule 0.4 mg PO QDAY 08/27/22 08/27/22 History guaifenesin 600 mg tablet, 600 mg PO BID 08/29/22 08/29/22 History extended release 12 hr (Mucinex) Allergies Allergy/AdvReac Type Severity Reaction Status Date / Time No Known Drug Allergies Allergy Unverified 08/27/22 02:48 Physical Examination Vital Signs Vital signs: Temp Pulse Resp BP Pulse Ox O2 Del Method 98.2 F 92 H 18 112/66 98 Room Air 08/29/22 12:00 08/29/22 12:00 08/29/22 12:00 08/29/22 12:00 08/29/22 12:00 08/29/22 12:00 General physical appearance General physical exam: well developed, well nourished, no distress, no pain, obese and other (AAOx3.Coversational. ) Eyes Eye exam: PERRL and normal ocular movement ENT ENT exam: normal pinna, normal nares, normal mucosa and no congestion Head Head exam IM: Present atraumatic and normocephalic Neck Neck exam: no masses, trachea midline and no venous distension Cardiovascular Cardiovascular exam IM: Present normal rate and rhythm Respiratory Respiratory exam: normal respiratory effort and clear to auscultation (Morbid obesity. Decreased air entry lung bses. NO wheezing. ) Abdomen Abdomen: Present non tender and bowel sounds Integumentary Integumentary: Present other (Pitting edema of LE from dorsal foot towards lwoer calf. Erythematous rash. Moisture associated dermatits. Small punture wound LEFT lateral calf with lymphatic draiange. ) Neurologic Neurologic: Present normal coordination and normal sensation Musculoskeletal Musculoskeletal: Present other (Patient sitting in bed. ) Psychiatric Psychiatric: Present oriented to time, oriented to person, oriented to place, speech is normal and memory intact Additional Findings Additional exam: Resolving cellulitis LEFT leg and lower thigh. Results Labs 08/28/22 05:54 08/29/22 05:36 Labs: Abnormal lab results 08/29/22 Range/Units 05:36 Sodium 132 L (133-145) mmol/L Chloride 95 L (96-108) mmol/L Glucose 161 H (70-105) mg/dL Calcium 8.0 L (8.6-10.4) mg/dL Diabetes panel 08/29/22 Range/Units 05:36 Sodium 132 L (133-145) mmol/L Potassium 3.3 (3.3-5.1) mmol/L Chloride 95 L (96-108) mmol/L Carbon Dioxide 25 (22-30) mmol/L BUN 11 (8-23) mg/dL Creatinine 0.7 (0.7-1.2) mg/dL Glucose 161 H (70-105) mg/dL Calcium 8.0 L (8.6-10.4) mg/dL Calcium panel 08/29/22 Range/Units 05:36 Calcium 8.0 L (8.6-10.4) mg/dL Pituitary panel 08/29/22 Range/Units 05:36 Sodium 132 L (133-145) mmol/L Potassium 3.3 (3.3-5.1) mmol/L Chloride 95 L (96-108) mmol/L Carbon Dioxide 25 (22-30) mmol/L BUN 11 (8-23) mg/dL Creatinine 0.7 (0.7-1.2) mg/dL Glucose 161 H (70-105) mg/dL Calcium 8.0 L (8.6-10.4) mg/dL Adrenal panel 08/29/22 Range/Units 05:36 Sodium 132 L (133-145) mmol/L Potassium 3.3 (3.3-5.1) mmol/L Chloride 95 L (96-108) mmol/L Carbon Dioxide 25 (22-30) mmol/L BUN 11 (8-23) mg/dL Creatinine 0.7 (0.7-1.2) mg/dL Glucose 161 H (70-105) mg/dL Calcium 8.0 L (8.6-10.4) mg/dL All other labs normal. A/P Narrative A/P Narrative: Assessment: Resolving CSSSi / Cellulitis LEFT leg. comorbidities; DM2 BPH Morbid obesity H/o TIA Plan of Treatment: Plan: Agree with IV antibiotics. Local skin and wound care. Medial management per Hospitalist. Will follow patient during hospitalization. Further recommendations as condition evolves. Time Spent With Patient Time: Total time spent is greater than 50% in coordination of care (as documented) at patient's floor/unit and/or counseling patient:
[2022-08-29] MEDS ORDERED: ALBUMIN HUMAN 12.5 GM/50 ML VIAL IV ONE (14:19)
[2022-08-29] MEDS ORDERED: FUROSEMIDE 40 MG/4 ML VIAL IV ONE (14:19)
[2022-08-30] MEDS: 0.9 % SODIUM CHLORIDE 10 ML SYRINGE IV SCH ×2 (07:39→09:14)
[2022-08-30] MEDS: INSULIN LISPRO 1 UNIT/0.01 ML UNIT SQ SCH ×2 (07:40→11:39)
[2022-08-30] MEDS: BUMETANIDE 1 MG TABLET PO SCH (07:49)
[2022-08-30] MEDS: POTASSIUM CHLORIDE 10 MEQ TABLET PO SCH (07:49)
[2022-08-30] MEDS: ATORVASTATIN 10 MG TABLET PO SCH (08:02)
[2022-08-30] MEDS: DOCUSATE SODIUM 100 MG CAPSULE PO SCH (08:02)
[2022-08-30] MEDS: TAMSULOSIN 0.4 MG CAPSULE PO SCH (08:02)
[2022-08-30] MEDS: guaiFENesin 600 MG TAB.SR.12H PO SCH (08:02)
[2022-08-30] MEDS: cefTRIAXone 2 GM in DEXTROSE 5% IN WATER 50 ML IV SCH (09:03)
[2022-08-30] MEDS: AMANTADINE HCL 100 MG CAPSULE PO SCH (09:14)
--- NOTE | 2022-08-30 10:56 | General Surgery Progress Note ---
SUBJECTIVE Subjective Patient information: Note initiated : 08/30/22 at 10:52 am Service Date, if different from initiated Date: [] Patient: Foreign Matthew 71 y/o M admitted on 08/27/22 for fever, weakness. Chief Complaint: [] Additional PMFSH (Level 3 Only): Looks good and feels well. Keen to go home. Ambulating Constitutional Vitals: Vital Signs Temp Pulse Resp BP Pulse Ox O2 Del Method 97.7 F 81 18 143/81 96 Room Air 08/30/22 08:00 08/30/22 08:00 08/30/22 08:00 08/30/22 08:00 08/30/22 08:00 08/30/22 08:00 Period Temp Pulse Resp BP Sys/[place] Pulse Ox O2 Del Method O2 Flow Rate Last 24 Hr 97.7 F-98.7 F 81-97 16-20 112-143/62-81 96-98 Room Air-Room Air Intake and Output 08/29/22 08/30/22 08/30/22 19:59 03:59 11:59 Intake Total 890 650 50 Balance 890 650 50 Weight 296 lb 3.2 oz Intake & Output: Intake & Output 08/29/22 08/30/22 08/30/22 19:59 03:59 11:59 Intake Total 890 650 50 Balance 890 650 50 Weight 296 lb 3.2 oz Intake: IV 50 50 Rocephin 2 gm In Dextrose 5% in 50 Water 50 ml @ 100 mls/hr IV Q24H ZACHARY Rx#:[id number] Oral 840 650 Other: Meal Lunch Percent of Meal Consumed 100% # Voids 2 Exam: AVSS. No changes SYMONE. Significant improement with resolution of cellulitis LEFT leg. Labs reviewed. A/P Narrative A/P Narrative: Assessment: Satisfactory progress. Agree with discharge plans. Plan of Treatment: Plan: Agree with IV antibiotics. Per hospitalist Continue Local skin and wound care@ SDS F/U at wound clinic in ONE week. Time Spent With Patient Time: Total time spent is greater than 50% in coordination of care (as documented) at patient's floor/unit and/or counseling patient:
== END 2022-08-30 13:10 | disposition home or self-care (01) | DRG 871 ==
LOC: ED 02:39 → MEDSUR 11:49
PROVIDERS: ADMIT Internal Medicine; ATTEND Internal Medicine